=== PATIENT | male | born 1985 | race African-American/Black ===

== ENCOUNTER 2017-06-26 13:34 | Emergency (ER) | payer SELFPAY ==
[~2017-06-26] VITALS: Ht 172.7 cm; Wt 113.4 kg
[2017-06-26 13:55] VITALS: BP 146/89
[2017-06-26 15:20] LABS: APPEARANCE,URINE CLEAR; BILIRUBIN, URINE NEGATIVE (NEGATIVE); COLOR,URINE PALE YELLOW; GLUCOSE, URINE (UA) NEGATIVE (NEGATIVE); KETONES,URINE NEGATIVE (NEGATIVE); LEUKOCYTE ESTERASE ,URINE NEGATIVE (NEGATIVE); NITRITE,URINE NEGATIVE (NEGATIVE); PH,URINE 6.5 (4.5-8.0); PROTEIN,URINE NEGATIVE (NEGATIVE); UROBILINOGEN,URINE NORMAL MG/DL (0.0-1.0)
--- NOTE | 2017-06-26 15:47 | Emergency Room Report ---
History of Present Illness General Chief Complaint: Male Urogenital Problems Source: Patient Present Illness HPI 32-year-old male presents to the emergency department complaining of urinary frequency with dysuria only at the and of history and. Patient states that he feels as though he still has more urine in his bladder however he has to strain and hurts trying to empty his bladder completely. Denies pain at this time, reiterates only at the end of urination. He states that his symptoms have only been for 2 days he denies fevers, chills, penile discharge, swollen tender lymph nodes or genital rash. Patient denies recent unprotected intercourse he states that on Monday and Monday night he was drinking heavily and believes may be it was from dehydration. Denies hematuria. Denies abdominal pain, constipation, diarrhea, nausea or vomiting. Denies history of BPH or other urological diseases/pathology. denies testicular pain, tenderness or swelling. Allergies: Coded Allergies: No Known Allergies (Unverified , 06/26/17) Patient History Past Medical History: see triage record Past Surgical History: none Pertinent Family History: none Reviewed Nursing Documentation: PMH: Agreed, PSxH: Agreed Nursing Documentation-PMH Past Medical History: No Stated History Review of Systems All Other Systems: negative except mentioned in HPI Physical Exam Vital Signs Date Time Temp Pulse Resp B/P (MAP) Pulse Ox O2 Delivery O2 Flow Rate FiO2 06/26/17 13:39 97.5 79 20 146/89 99 Room Air Sp02 EP Interpretation: reviewed, normal General Appearance: no apparent distress, alert, GCS 15, non-toxic Head: normocephalic, atraumatic Eyes: bilateral eye normal inspection, bilateral eye PERRL ENT: hearing grossly normal, normal voice Neck: full range of motion Respiratory: lungs clear, normal breath sounds, speaking full sentences Cardiovascular #1: regular rate, rhythm Gastrointestinal: normal bowel sounds, non tender, soft Rectal: deferred Genitourinary: normal inspection, no CVA tenderness, other - deferred genital exam Musculoskeletal: back normal, gait/station normal, normal range of motion, non- tender Neurologic: alert, oriented x3, responsive, motor strength/tone normal, sensory intact, normal gait, speech normal Skin: normal color, no rash, warm/dry, well hydrated Lymphatic: no adenopathy Medical Decision Making PA Attestation Dr. Valdez is my supervising Physician whom patient management has been discussed with. Diagnostic Impression: Primary Impression: Urinary tract infection Qualified Codes: N30.00 - Acute cystitis without hematuria ER Course 32-year-old male presents to the emergency department complaining of urinary frequency with dysuria only at the and of history and. Patient states that he feels as though he still has more urine in his bladder however he has to strain and hurts trying to empty his bladder completely. Denies pain at this time, reiterates only at the end of urination. He states that his symptoms have only been for 2 days he denies fevers, chills, penile discharge, swollen tender lymph nodes or genital rash. Patient denies recent unprotected intercourse he states that on Monday and Monday night he was drinking heavily and believes may be it was from dehydration. Denies hematuria. Denies abdominal pain, constipation, diarrhea, nausea or vomiting. Denies history of BPH or other urological diseases/pathology. denies testicular pain, tenderness or swelling. Ddx considered but are not limited to UTi , Pyelo, STI, Stone, Urethritis, BPH, urinary retention, just to name a few. Vital signs: are WNL, pt. is afebrile H&PE are most consistent with UTI. ORDERS: - UA labs are attached : few bacteria, no squamous- therefore will treat as UTI as contamination is less likely ED INTERVENTIONS: None required at this time. DISCHARGE: At this time pt. is stable for d/c to home. Will provide printed patient care instructions, and any necessary prescriptions. Care plan and follow up instructions have been discussed with the patient prior to discharge. Labs Test 06/26/17 14:19 Urine Color Pale yellow Urine Appearance Clear Urine pH 6.5 (4.5-8.0) Urine Specific [place] 1.005 (1.005-1.035) Urine Protein Negative (NEGATIVE) Urine Glucose (UA) Negative (NEGATIVE) Urine Ketones Negative (NEGATIVE) Urine Occult Blood 5+ (NEGATIVE) Urine Nitrite Negative (NEGATIVE) Urine Bilirubin Negative (NEGATIVE) Urine Urobilinogen Normal MG/DL (0.0-1.0) Urine Leukocyte Esterase Negative (NEGATIVE) Urine RBC 2-4 /HPF (0 - 0) Urine WBC 0-2 /HPF (0 - 0) Urine Squamous Epithelial Cells None /LPF (NONE/OCC) Urine Amorphous Sediment Few /LPF (NONE) Urine Bacteria Few /HPF (NONE) Last Vital Signs Date Time Temp Pulse Resp B/P (MAP) Pulse Ox O2 Delivery O2 Flow Rate FiO2 06/26/17 13:55 97.5 20 146/89 99 Room Air 06/26/17 13:39 79 Disposition: HOME, SELF-CARE Condition: Stable Scripts Phenazopyridine Hcl* (PYRIDIUM*) 200 Mg Tablet 200 MG ORAL THREE TIMES A DAY for 3 Days, #9 TAB 0 Refills Prov: Morenita Madera 06/26/17 Cephalexin* (KEFLEX*) 500 Mg Capsule 500 MG ORAL EVERY 12 HOURS for 7 Days, #14 CAP 0 Refills Prov: Morenita Madera 06/26/17 Referrals: NOT CHOSEN IPA/,REFERRING (PCP) Patient Instructions: Urinary Tract Infection Additional Instructions: Take medications as directed. Follow up with a Primary Care Provider in 3-5 days, even if your symptoms have resolved. --Please review list of primary care clinics, if you do not already have a primary care provider Return sooner to ED if new symptoms occur, or current symptoms become worse. - Please note that this Emergency Department Report was dictated using [employer] program manager technology software, occasionally this can lead to erroneous entry secondary to interpretation by the dictation equipment. Morenita Madera Jun 26, 2017 15:47
[2017-06-26] MEDS ORDERED: PHENAZOPYRIDIN200 MG ORAL (15:48)
[2017-06-26] MEDS ORDERED: CEPHALEXIN500 MG ORAL (15:48)
[2017-06-26 15:56] VITALS: BP 146/89
== END 2017-06-26 15:57 | disposition home or self-care (01) ==
LOC: EMR 14:50
DX: N39.0 Urinary tract infection, site not specified (principal); R35.0 Frequency of micturition; R30.0 Dysuria
CPT/HCPCS: 81003; 99283